=== PATIENT | female | born 1975 | race Caucasian/White ===

== ENCOUNTER 2020-12-21 08:22 | Outpatient (CLI) | payer BC | END 2020-12-21 08:23 | disposition home or self-care (01) | LOC: CSHLAB 08:22 | PROVIDERS: ATTEND Student in an Organized Health Care Education/Training Program | DX: Z01.812 Encounter for preprocedural laboratory examination (principal); Z20.822 Contact with and (suspected) exposure to COVID-19; N84.0 Polyp of corpus uteri | CPT/HCPCS: 84703; 85027; 86850; 86900; 86901; 87635; U0003; U0005 ==